=== PATIENT | male | born 1990 | race Caucasian/White ===

== ENCOUNTER 2018-06-26 22:19 | Inpatient (IN) ==
[2018-06-26] MEDS ORDERED: Haloperidol Inj 5 MG/ML Ampul IM ONE (22:30)
[2018-06-27 00:10] LABS: Baso % (Auto) 0.4 % (0.0-2.0); Eos % (Auto) 0.4 % (0.0-4.0); Hematocrit 43.9 % (39.0-51.0); Hemoglobin 15.3 gm/dL (13.0-17.0); Lymph # (Auto) 2.7 th/mm3 (1.0-4.8); Lymph % (Auto) 27.5 % (9.0-44.0); Mean Corpuscular HGB Conc 34.9 % (32.0-36.0); Mean Corpuscular Hemoglobin 31.2 pg (27.0-34.0); Mean Corpuscular Volume 89.6 fL (80.0-100.0); Mean Platelet Volume 7.6 fL (7.0-11.0); Mono # (Auto) 0.9 th/mm3 (0.0-0.9); Mono % (Auto) 9.7 % (0.0-8.0); Platelet Count 344 th/mm3 (150-450); Red Cell Distribution Width 13.7 % (11.6-17.2); White Blood Count 9.7 th/mm3 (4.0-11.0)
[2018-06-27 00:13] LABS: Amphetamine Screen,Urine Neg (Neg); Barbiturate Screen,Urine Neg (Neg); Cannabinoid Screen,Urine Neg (Neg); Cocaine Screen,Urine Neg (Neg)
[2018-06-27 00:15] LABS: Opiate Screen,Urine Neg (Neg)
[2018-06-27 00:22] LABS: Albumin 3.8 g/dL (3.4-5.0); Anion Gap 12 meq/L (5-15); Aspartate Aminotransferase 65 U/L (15-37); Blood Urea Nitrogen 10 mg/dL (7-18); Calcium 8.5 mg/dL (8.5-10.1); Carbon Dioxide 20.9 meq/L (21.0-32.0); Chloride 113 meq/L (98-107); Glomerular Filtration Rate Greater Than 89 mL/min (>89); Glucose,Random 110 mg/dL (74-106); Magnesium 2.3 mg/dL (1.5-2.5); Potassium 3.4 meq/L (3.5-5.1); Sodium 146 meq/L (136-145)
[2018-06-27 00:23] LABS: Alcohol 165 mg/dL (0-5)
[2018-06-27 00:30] LABS: Alanine Aminotransferase 86 U/L (12-78); Alkaline Phosphatase 56 U/L (45-117); Thyroid Stimulating Hormone 0.163 uIU/mL (0.358-3.740); Total Protein 8.7 g/dL (6.4-8.2)
--- NOTE | 2018-06-27 01:20 | ED ---
HPI General Chief Complaint: Psychiatric Symptoms Stated Complaint: eval/DBPD Time Seen by Provider: 06/26/18 22:25 Source: police Mode of arrival: other (police) Limitations: altered mental status History of Present Illness HPI Narrative: Patient presents to our facility under a Patel act via law enforcement. Patient has been very combative and physically angry with both assistant dean of students and medical staff upon arrival. Patient has a taser laser pointed his chest upon time of trying to conduct the history. Patient is belligerent and cursing and screaming at everybody trying to kick and scream. Patient will be physically and chemically restrained MD complaint: Reports suicidal ideation and altered mental status Duration: getting worse History of same: No Relieving factors: none Context: Reports recent drug abuse and not taking psychiatric medications Associated psychiatric symptoms: Reports suicidal ideation Treatments prior to arrival: Reports placed on mental health hold and physical restraints Related Data Home Medications Medication Instructions Recorded Confirmed No Known Home Medications 06/26/18 06/26/18 Allergies Allergy/AdvReac Type Severity Reaction Status Date / Time No Known Allergies Allergy Verified 06/26/18 23:02 Review of Systems ROS: all other systems reviewed are negative [facility] Medical History Medical History Bipolar 1 disorder (Acute) Opiate addiction (Acute) Social History Social History Substance History: Active Abuse Recent Travel in [facility] within the Last 8 Weeks: No Recent Out of Country Travel within the Last 8 Weeks: No Substance Abuse Detail Opiates: Substance Use Status: Active Route Used Substance Abuse: By Mouth Exam Const General: combative HENDE Head: normocephalic and atraumatic Nose: no nasal discharge and no epistaxis Mouth: moist mucous membranes Eyes Sclera: normal sclerae Pupils: PERRL Neck Neck: trachea midline and no JVD Resp Effort & Inspection: no use of accessory muscles Auscultation: clear to auscultation bilaterally Cardio Rate: regular rate Rhythm: regular rhythm Heart Sounds: no murmurs GI Inspection: non-distended Palpation: soft, no hepatosplenomegaly and nontender Skin General: dry skin (warm) Neuro General: alert and awake Cranial Nerves: other Speech: speech normal Motor: no movement abnormalities noted Extrem General: normal to inspection, no clubbing, no cyanosis and no edema Psych Appearance: disheveled Speech and Movement: agitated Mood: congruent mood Affect: anxious affect and hostile Attitude: belligerent and guarded Thought Process: illogical Thought Content: obsessions Judgment: poor Course Initial Documented Vital Signs Temperature 99.0 F 06/26/18 23:00 Pulse Rate 94 H 06/26/18 23:00 Respiratory Rate 18 06/26/18 23:00 Blood Pressure 127/65 06/26/18 23:00 Pulse Oximetry 95 06/26/18 23:00 Last Documented Vital Signs Temperature 98.0 F 06/27/18 11:13 Pulse Rate 83 06/27/18 11:13 Respiratory Rate 18 06/27/18 11:13 Blood Pressure 122/73 06/27/18 11:13 Pulse Oximetry 99 06/27/18 11:13 Medical Decision Making MDM Narrative Medical decision making narrative: Patient presents to our facility under a Patel act via law enforcement. Patient has been very combative and physically angry with both assistant dean of students and medical staff upon arrival. Patient has a taser laser pointed his chest upon time of trying to conduct the history. Patient is belligerent and cursing and screaming at everybody trying to kick and scream. Patient will be physically and chemically restrained Patient blood pressure is 125/65, pulse is 85, temperature is 98.1, O2 sat is 98 on room air Patient is given 2 mg of Ativan, 5 mg of Haldol, 50 of Benadryl and is physically restrained Patient is still being belligerent and screaming as loud as he can. Patient is cursing at staff saying that he will kill us all After 3 hours patient is still continuing to scream patient will be given dose of Geodon IM 1.5 hours after Geodon patient is still screaming and has got out of the locked restraint cuffs. Patient scuffs were reapplied and patient was given 2 mg of IM Ativan along with 25 of Benadryl Patient is finally resting comfortably Patient has a white count of 9.7, hemoglobin is 15.3, creatinine is 0.90 with a BUN of 10 alcohol level is 167, drug screen is negative Patient is medically cleared at 0 100 Await psychiatric evaluation in the morning Medical Screen Exam Complete: Yes Emergency Medical Condition: Yes Lab Data Lab results reviewed: Yes I reviewed the patient's lab results. Result diagrams: 06/26/18 22:35 06/26/18 22:35 Lab Results 06/26/18 06/26/18 06/26/18 Range/Units 22:35 22:35 22:35 WBC 9.7 (4.0-11.0) th/mm3 RBC 4.90 (4.50-5.90) mil/mm3 Hgb 15.3 (13.0-17.0) gm/dL Hct 43.9 (39.0-51.0) % MCV 89.6 (80.0-100.0) fL MCH 31.2 (27.0-34.0) pg MCHC 34.9 (32.0-36.0) % RDW 13.7 (11.6-17.2) % Plt Count 344 (150-450) th/mm3 MPV 7.6 (7.0-11.0) fL Neut % (Auto) 62.0 (16.0-70.0) % Lymph % (Auto) 27.5 (9.0-44.0) % [place] % (Auto) 9.7 H (0.0-8.0) % Eos % (Auto) 0.4 (0.0-4.0) % Baso % (Auto) 0.4 (0.0-2.0) % Neut # (Auto) 6.0 (1.8-7.7) th/mm3 Lymph # (Auto) 2.7 (1.0-4.8) th/mm3 [place] # (Auto) 0.9 (0.0-0.9) th/mm3 Eos # (Auto) 0.0 (0.0-0.4) th/mm3 Baso # (Auto) 0.0 (0.0-0.2) th/mm3 WBC Differential . Differential Comment Auto diff final Sodium 146 H (136-145) meq/L Potassium 3.4 L (3.5-5.1) meq/L Chloride 113 H (98-107) meq/L Carbon Dioxide 20.9 L (21.0-32.0) meq/L Anion Gap 12 (5-15) meq/L BUN 10 (7-18) mg/dL Creatinine 0.90 (0.60-1.30) mg/dL Estimated GFR Greater than 89 (>89) mL/min Random Glucose 110 H (74-106) mg/dL Calcium 8.5 (8.5-10.1) mg/dL Magnesium 2.3 (1.5-2.5) mg/dL Total Bilirubin 0.2 (0.2-1.0) mg/dL AST 65 H (15-37) U/L ALT 86 H (12-78) U/L Alkaline Phosphatase 56 (45-117) U/L Total Protein 8.7 H (6.4-8.2) g/dL Albumin 3.8 (3.4-5.0) g/dL TSH 0.163 L (0.358-3.740) uIU/mL Salicylates 2.2 L (2.8-20.0) mg/dL Urine Opiates Screen (Neg) Acetaminophen Less than 2.0 L (10.0-30.0) mcg/mL Ur Barbiturates Screen (Neg) Ur Amphetamines Screen (Neg) U Benzodiazepines Scrn (Neg) Urine Cocaine Screen (Neg) U Cannabinoids Screen (Neg) Serum Alcohol 165 H (0-5) mg/dL 06/26/18 Range/Units 23:30 WBC (4.0-11.0) th/mm3 RBC (4.50-5.90) mil/mm3 Hgb (13.0-17.0) gm/dL Hct (39.0-51.0) % MCV (80.0-100.0) fL MCH (27.0-34.0) pg MCHC (32.0-36.0) % RDW (11.6-17.2) % Plt Count (150-450) th/mm3 MPV (7.0-11.0) fL Neut % (Auto) (16.0-70.0) % Lymph % (Auto) (9.0-44.0) % [place] % (Auto) (0.0-8.0) % Eos % (Auto) (0.0-4.0) % Baso % (Auto) (0.0-2.0) % Neut # (Auto) (1.8-7.7) th/mm3 Lymph # (Auto) (1.0-4.8) th/mm3 [place] # (Auto) (0.0-0.9) th/mm3 Eos # (Auto) (0.0-0.4) th/mm3 Baso # (Auto) (0.0-0.2) th/mm3 WBC Differential Differential Comment Sodium (136-145) meq/L Potassium (3.5-5.1) meq/L Chloride (98-107) meq/L Carbon Dioxide (21.0-32.0) meq/L Anion Gap (5-15) meq/L BUN (7-18) mg/dL Creatinine (0.60-1.30) mg/dL Estimated GFR (>89) mL/min Random Glucose (74-106) mg/dL Calcium (8.5-10.1) mg/dL Magnesium (1.5-2.5) mg/dL Total Bilirubin (0.2-1.0) mg/dL AST (15-37) U/L ALT (12-78) U/L Alkaline Phosphatase (45-117) U/L Total Protein (6.4-8.2) g/dL Albumin (3.4-5.0) g/dL TSH (0.358-3.740) uIU/mL Salicylates (2.8-20.0) mg/dL Urine Opiates Screen Neg (Neg) Acetaminophen (10.0-30.0) mcg/mL Ur Barbiturates Screen Neg (Neg) Ur Amphetamines Screen Neg (Neg) U Benzodiazepines Scrn Neg (Neg) Urine Cocaine Screen Neg (Neg) U Cannabinoids Screen Neg (Neg) Serum Alcohol (0-5) mg/dL Discharge Plan Discharge Disposition Patient Disposition: Sign Out(ED Internal Use Only) Discharge Condition Condition: Stable Discharge Details Diagnosis: Suicidal ideation, Drug-induced psychotic disorder Physicians Team ED Provider: Kashmir Phillips ED Midlevel Provider: Beatris Lopez Primary Care Provider: Primary Care LatanyaiMaryam Rxs /Orders / Referrals /Forms Prescriptions: No Action No Known Home Medications RF: 0 Status ED Status: Medically Cleared
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
[2018-06-27] MEDS ORDERED: Acetaminophen 325 MG Tablet PO ONE (21:37)
[2018-06-28] MEDS ORDERED: LORazepam 1 MG Tablet PO PRN (08:25)
[2018-06-28] MEDS ORDERED: Bisacodyl 10 MG Supp RECTAL PRN (08:25)
[2018-06-28] MEDS ORDERED: Haloperidol Inj 5 MG/ML Ampul IV.PUSH PRN (08:25)
[2018-06-28] MEDS ORDERED: Aluminum/Magnesium/Simethacone Susp 30 ML UDC PO PRN (08:25)
[2018-06-28] MEDS: Senna/Docusate Sodium 8.6/50 MG Tablet PO SCH ×2 (13:21→21:58)
[2018-06-28] MEDS: Acetaminophen 325 MG Tablet PO PRN (23:05)
[2018-06-29] MEDS: Acetaminophen 325 MG Tablet PO PRN ×3 (00:50→16:01)
[2018-06-29] MEDS: Senna/Docusate Sodium 8.6/50 MG Tablet PO SCH ×2 (08:37→20:09)
[2018-06-29 10:55] LABS: Anion Gap 10 meq/L (5-15); Blood Urea Nitrogen 6 mg/dL (7-18); Calcium 9.1 mg/dL (8.5-10.1); Carbon Dioxide 25.2 meq/L (21.0-32.0); Chloride 106 meq/L (98-107); Glomerular Filtration Rate Greater Than 89 mL/min (>89); Glucose,Random 102 mg/dL (74-106); Potassium 3.3 meq/L (3.5-5.1); Sodium 141 meq/L (136-145)
[2018-06-29 10:57] LABS: Cholesterol 138 mg/dL (120-200)
[2018-06-29 10:59] LABS: Chol/HDL Ratio 1.82 Ratio; HDL Cholesterol 75.5 mg/dL (40.0-60.0); LDL Cholesterol,Calculated 38 mg/dL (0-99); Triglycerides 122 mg/dL (42-150)
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
[2018-06-29 16:05] LABS: Hemoglobin A1c 5.6 % (4.3-6.0)
[2018-06-29] MEDS ORDERED: Temazepam 15 MG Capsule PO PRN (21:00)
[2018-06-30] MEDS: Acetaminophen 325 MG Tablet PO PRN (00:05)
[2018-06-30] MEDS: Senna/Docusate Sodium 8.6/50 MG Tablet PO SCH (08:28)
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
--- NOTE | 2018-06-30 10:24 | P.TTN ---
- Patient Problems Problems: 1. Discharge planning 2. Medication compliance 3. Knowledge deficit 4. Lack of coping skills - Progress Toward Goals Provider Present: Other (Dr. Footepatient meets criteria for discharge.) Psychiatric Counselors Present: Teofilo Aguillon Jr., [facility] (Patient is being discharged to the [id number]'s house Slick Davis. Discharge is complete. See final discharge disposition in the EMR.) Group Spec/RT/OT/TAY Present: MAGGI Saleh (Patient is seclusive to his room and does not attend groups at this time.) - Documentation Teaching Recipient: Patient
== END 2018-06-30 11:30 | disposition home or self-care (01) | DRG 885 ==
LOC: NEDAMB 22:19 → NEDA 06-28 08:25 → H270 06-28 11:31
PROVIDERS: ADMIT Psychiatry & Neurology Psychiatry; ATTEND Psychiatry & Neurology Psychiatry
CPT/HCPCS: 80048; 80053; 80061; 80307; 83036; 83735; 84443; 85025; 90772; 90782; 90791; 96372; 99285; C9204; J1200; J1630; J2060; J3486; Q0163